=== PATIENT | male | born 1985 ===

== ENCOUNTER 2021-09-25 16:17 | Inpatient (IN) | payer SELFPAY ==
[2021-09-25] MEDS ORDERED: Boostrix 0.5 ML (Tdap) VIAL ONE (16:32)
[2021-09-25] MEDS ORDERED: CEFAZOLIN 2 GM in Dextrose 5% in Water 100 ML IVPB SCH (16:45)
[2021-09-25] MEDS ORDERED: hydrALAZINE 20 MG/ML VIAL SLOW IVP PRN (16:47)
[2021-09-25] MEDS ORDERED: Ondansetron PF 4 MG/2 ML Vial IVP PRN (16:47)
[2021-09-25] MEDS ORDERED: Morphine 2 MG/ML VIAL SLOW IVP PRN (16:47)
[2021-09-25] MEDS ORDERED: Ibuprofen 600 MG TAB PO PRN (16:50)
[2021-09-25] MEDS ORDERED: Cyclobenzaprine 10 MG TAB PO PRN (16:50)
[2021-09-25] MEDS ORDERED: traMADol HCl 50 MG TAB PO PRN (16:50)
[2021-09-25] MEDS ORDERED: Gentamicin Sulfate 80 MG in Premix Bag 1 BAG IVPB SCH (17:15)
[2021-09-25] MEDS ORDERED: Bacitracin Zinc Ointment 30 gm TUBE ONE (17:20)
[2021-09-25] MEDS ORDERED: Neomycin-Polymyxin 1 ML AMP ONE (17:20)
[2021-09-25] MEDS ORDERED: Bupivacaine PF 0.5% 30 ML VIAL ONE (17:20)
[2021-09-25] MEDS ORDERED: Morphine 4 MG/ML VIAL ONE (17:32)
[2021-09-25 17:56] LABS: SARS-CoV-2 NAA Rapid Test Not Detected (NotDetected)
[2021-09-25] MEDS ORDERED: fentaNYL Citrate/PF 100 MCG/2 ML SYRINGE ONE (18:40)
[2021-09-25] MEDS ORDERED: HYDROcodone/Acetaminophen 5/325 mg Tablet PO PRN (18:43)
[2021-09-25] MEDS ORDERED: Milk Of Magnesia 30 ML UDCUP PO PRN (18:43)
[2021-09-25] MEDS ORDERED: Morphine 4 MG/ML VIAL SLOW IVP PRN (18:43)
[2021-09-25] MEDS ORDERED: Acetaminophen 325 MG TAB PO PRN (18:43)
[2021-09-25] MEDS ORDERED: Fentanyl 100 MCG/2 ML VIAL SLOW IVP PRN (18:43)
[2021-09-25] MEDS ORDERED: Neostigmine Methylsulfate 3 MG/3 ML SYRINGE ONE (18:45)
[2021-09-25] MEDS ORDERED: Glycopyrrolate 0.2 MG/ML 5 ML SYRINGE ONE (18:45)
[2021-09-25] MEDS ORDERED: Lidocaine 1% PF 5 ML VIAL ONE (18:45)
[2021-09-25] MEDS ORDERED: TETANUS AND DIPHTHERIA TOX/PF 0.5 ML DISP.SYRIN IM SCH (18:45)
[2021-09-25] MEDS ORDERED: Succinylcholine 200 MG/10 ml SYRINGE FS ONE (18:45)
[2021-09-25] MEDS ORDERED: Communication Order-Pharmacy FS SCH (18:45)
[2021-09-25] MEDS ORDERED: Rocuronium Bromide 10 MG/ML (10ML VIAL) ONE (18:45)
[2021-09-25] MEDS ORDERED: PROPOFOL 200 MG/20 ML VIAL ONE (18:45)
[2021-09-25] MEDS ORDERED: Ketorolac Tromethamine 30 MG/ML VIAL ONE (18:45)
[2021-09-25] MEDS ORDERED: Ondansetron PF 4 MG/2 ML Vial ONE (18:45)
[2021-09-25] MEDS ORDERED: Ketorolac Tromethamine 30 MG/ML VIAL IVP PRN (18:47)
[2021-09-25] MEDS ORDERED: Meperidine HCl/PF 25 MG/ML VIAL IM PRN (18:47)
[2021-09-25] MEDS ORDERED: Meperidine HCl/PF 25 MG/ML VIAL SLOW IVP PRN (19:08)
[2021-09-25] MEDS ORDERED: Promethazine HCl 25 MG/ML VIAL IM PRN (19:08)
[2021-09-25] MEDS ORDERED: Promethazine HCl 25 MG/ML VIAL IVPB PRN (19:08)
[2021-09-25] MEDS ORDERED: HYDROmorphone 2 MG/ML VIAL SLOW IVP PRN (19:08)
[2021-09-25] MEDS ORDERED: Gentamicin 80 MG/2 ML VIAL IM SCH (22:00)
[2021-09-25] MEDS: Acetaminophen 325 MG TAB PO SCH ×2 (22:29→23:50)
[2021-09-25] MEDS: Senokot S 8.6-50 MG TAB PO SCH (22:30)
[2021-09-25] MEDS: Aspirin 81 mg Enteric Coated Tablet PO SCH (22:30)
[2021-09-25] MEDS: Sodium Chloride 0.9% 1,000 ML IV SCH ×2 (22:30→23:50)
[2021-09-25] MEDS: traMADol HCl 50 MG TAB PO SCH ×2 (22:30→23:50)
[2021-09-25] MEDS: Famotidine/PF 20 mg/2ml Vial SLOW IVP SCH (22:30)
[2021-09-25 22:41] VITALS: BMI 30.4
[2021-09-25] MEDS: Vancomycin 1 GM in Premix Bag 1 BAG IVPB SCH (23:50)
[2021-09-26] MEDS: Gentamicin Sulfate 80 MG in Premix Bag 1 BAG IVPB SCH ×2 (01:57→10:49)
[2021-09-26] MEDS: Acetaminophen 325 MG TAB PO SCH ×2 (05:46→10:45)
[2021-09-26] MEDS: traMADol HCl 50 MG TAB PO SCH ×2 (05:47→12:52)
[2021-09-26 06:15] LABS: #Lymphocytes 1.2 thou/uL (1.20-3.40); #Monocytes 0.2 thou/uL (0.11-0.59); #Neutrophils 11.5 thou/uL (1.40-6.50); %Basophils 0.1 % (0.0-1.0); %Eosinophils 0.1 % (0.0-10.0); %Lymphocytes 9.2 % (21.0-51.0); %Monocytes 1.8 % (0.0-10.0); %Neutrophils 88.8 % (42.0-75.0); Mean Corpuscular HGB CONC 34.3 g/dL (32.0-36.0); Mean Corpuscular Hemoglobin 30.6 pg (27.0-31.0); Mean Corpuscular Volume 89.2 fL (78.0-98.0); Mean Platelet Volume 8.7 fL (7.4-10.4); Platelet Count 215 thou/uL (130-400); Red Blood Cell (RBC) Count 4.92 mill/uL (4.70-6.10)
[2021-09-26 06:35] LABS: Anion Gap 13 mmol/L (10-20); BUN (Urea Nitrogen) 13 mg/dL (8.9-20.6); Calc. Creatinine Clearance 132 mL/min (70-130); Calcium 8.7 mg/dL (7.8-10.44); Carbon Dioxide 21 mmol/L (22-29); Chloride 107 mmol/L (98-107); Estimated GFR 101; Glucose 153 mg/dL (70-105); Sodium 137 mmol/L (136-145)
[2021-09-26] MEDS ORDERED: Polyethylene Glycol 3350 17 GM Packet PO SCH (09:00)
[2021-09-26] MEDS: Famotidine/PF 20 mg/2ml Vial SLOW IVP SCH (09:00)
[2021-09-26] MEDS: Aspirin 81 mg Enteric Coated Tablet PO SCH (09:00)
[2021-09-26] MEDS: Senokot S 8.6-50 MG TAB PO SCH (09:06)
[2021-09-26] MEDS: Sodium Chloride 0.9% 1,000 ML IV SCH (11:03)
[2021-09-26 11:19] VITALS: BP 162/82; TEMP 98.1
[2021-09-26] MEDS ORDERED: Acetaminophen 500 MG TAB PO SCH (12:00)
[2021-09-26] MEDS: Vancomycin 1 GM in Premix Bag 1 BAG IVPB SCH (12:53)
== END 2021-09-26 17:00 | disposition home or self-care (01) | DRG 513 ==
LOC: ERS 16:17 → SDC 18:34 → SURG A 18:43
PROVIDERS: ADMIT Orthopaedic Surgery Hand Surgery; ATTEND Surgery
PROC: 0KQD0ZZ Repair Left Hand Muscle, Open Approach (ICD-10-PCS; principal; 2021-09-25)
PROC: 01Q60ZZ Repair Radial Nerve, Open Approach (ICD-10-PCS; 2021-09-25)
PROC: 01Q40ZZ Repair Ulnar Nerve, Open Approach (ICD-10-PCS; 2021-09-25)
PROC: 0PBN0ZZ Excision of Left Carpal, Open Approach (ICD-10-PCS; 2021-09-25)
PROC: 0PBQ0ZZ Excision of Left Metacarpal, Open Approach (ICD-10-PCS; 2021-09-25)
PROC: 0PBS0ZZ Excision of Left Thumb Phalanx, Open Approach (ICD-10-PCS; 2021-09-25)
PROC: 0PH Upper Bones, Insertion (ICD-10-PCS; 2021-09-25)
PROC: 0PH Upper Bones, Insertion (ICD-10-PCS; 2021-09-25)
DX: S62.317B Displaced fracture of base of fifth metacarpal bone, left hand, initial encounter for open fracture (principal); S62.112B Displaced fracture of triquetrum [cuneiform] bone, left wrist, initial encounter for open fracture; S62.522B Displaced fracture of distal phalanx of left thumb, initial encounter for open fracture; S62.142B Displaced fracture of body of hamate [unciform] bone, left wrist, initial encounter for open fracture; S62.162B Displaced fracture of pisiform, left wrist, initial encounter for open fracture; S64.22XA Injury of radial nerve at wrist and hand level of left arm, initial encounter; S62.315A Displaced fracture of base of fourth metacarpal bone, left hand, initial encounter for closed fracture; Z20.822 Contact with and (suspected) exposure to COVID-19; W32.0XXA Accidental handgun discharge, initial encounter
CPT/HCPCS: 36415; 76000; 80048; 85025; 90471; 90715; 96365; 96375; C1894; G0390; J0690; J1580; J1885; J2270; J2405; J2704; J3370; J7050; J7070; S0020; S0028; U0002

== ENCOUNTER 2021-10-10 15:40 | Outpatient (CLI) | payer OTHER ==
[2021-10-10 16:36] LABS: Hemoglobin 15.2 g/dL (13.5-17.5); Mean Corpuscular HGB CONC 35.5 g/dL (32.0-36.0); Mean Corpuscular Hemoglobin 30.2 pg (27.0-33.0); Mean Corpuscular Volume 85.1 fl (81.2-95.1); Mean Platelet Volume 10.8 fl (7.4-10.4); Platelet Count 312 10x3/uL (150-450); RBC Distribution Width 12.7 % (11.5-14.5); Red Blood Cell (RBC) Count 5.03 10x6/uL (4.32-5.72); White Blood Cell (WBC) Count 10.4 10x3/uL (3.5-10.5)
== END 2021-10-10 15:41 | disposition home or self-care (01) ==
LOC: LABBT 15:40
PROVIDERS: ATTEND Orthopaedic Surgery Hand Surgery
DX: Z01.812 Encounter for preprocedural laboratory examination (principal); S62.305B Unspecified fracture of fourth metacarpal bone, left hand, initial encounter for open fracture; S64.32XA Injury of digital nerve of left thumb, initial encounter; S62.14 Fracture of body of hamate [unciform] bone; Z20.822 Contact with and (suspected) exposure to COVID-19
CPT/HCPCS: 85027; 87811